=== PATIENT | female | born 1985 | race Hispanic/Latino ===

== ENCOUNTER 2018-04-12 11:00 | Emergency (ER) | payer OTHER ==
[2018-04-12 11:13] VITALS: BMI 28.9
[2018-04-12 11:16] VITALS: TEMP 98
[2018-04-12 11:59] VITALS: O2SAT 98
--- NOTE | 2018-04-12 13:35 | ED PDOC ---
HPI: CCC, URI, Sore Throat Time Seen by Provider: 04/12/18 12:07 Chief Complaint (Nursing): ENT Problem Chief Complaint (Provider): Ear Pain History Per: Patient History/Exam Limitations: no limitations Have you had recent travel within the past 21 days to any of the following countries: [place], [place], [place] or [place]?: No Onset/Duration Of Symptoms: Days (x2) Current Symptoms Are (Timing): Still Present Location Of Pain: Ear(s) Associated Symptoms: denies: Fever, Sore Throat, Cough Ear Symptoms: Left: Ear Pain, Ear Drainage Additional Complaint(s): 32 y/o female presents to the ED with left ear pain since 930am yesterday. Patient states symptoms began yesterday when she noticed drainage and pus coming from the left ear. She reports using q-tips associated with pain. Patient took Motrin for the pain at 9:30 AM today with no relief. Denies any fever, headache, dizziness, recent swimming, cough, or throat pain. LMP is now. PMD: none provided Past Medical History Reviewed: Historical Data, Nursing Documentation, Vital Signs Vital Signs: Last Vital Signs Temp 98 F 04/12/18 11:14 Pulse 67 04/12/18 14:45 Resp 18 04/12/18 14:45 BP 106/77 04/12/18 14:45 Pulse Ox 98 04/13/18 20:21 - Medical History PMH: No Chronic Diseases - Surgical History Surgical History: No Surg Hx - Family History Family History: States: No Known Family Hx - Social History Current smoker - smoking cessation education provided: No Ex-Smoker (has not smoked in the last 12 months): No Alcohol: None Drugs: Denies - Home Medications Home Medications: Ambulatory Orders Medication Instructions Recorded Nitrofurantoin Macrocrystals 100 mg PO BID #14 cap 11/13/15 [Macrobid] Vitamins [ 1 1 tab PO DAILY #30 tab 11/13/15 Vitamin] Famotidine [Pepcid] 1 tab PO BID PRN #10 tab 12/11/16 Ondansetron ODT [Zofran ODT] 4 mg PO Q8 PRN #8 odt 12/11/16 Azithromycin [Z-Shayan] 250 mg PO DAILY #6 tab 04/12/18 Ciprofloxacin/Dexamethasone 4 drop BID #1 bottle 04/12/18 [Ciprodex 0.3%-0.1% 7.5 Ml] Naproxen 500 mg PO BID PRN #20 tablet 04/12/18 - Allergies Allergies/Adverse Reactions: Allergies Allergy/AdvReac Type Severity Reaction Status Date / Time Penicillins Allergy SHORTNESS Verified 04/12/18 12:29 OF BREATH Review of Systems ROS Statement: Except As Marked, All Systems Reviewed And Found Negative Constitutional: Negative for: Fever, Other (recent swimming) ENT: Positive for: Ear Pain (left), Ear Discharge (left ear canal). Negative for: Throat Pain Respiratory: Negative for: Cough Neurological: Negative for: Headache, Dizziness Physical Exam - Reviewed Nursing Documentation Reviewed: Yes Vital Signs Reviewed: Yes - Physical Exam Appears: Positive for: Well (resting comfortably), Non-toxic, No Acute Distress Head Exam: Positive for: NORMOCEPHALIC Skin: Positive for: Normal Color, Warm, Dry Eye Exam: Positive for: EOMI, PERRL ENT: Positive for: Pharynx Is (clear, uvula is midline), TM Is/Are (left is bulging and erythematous, right TM unremarkable), Other (left ear canal is erythematous with exudate, pain with helix movement of left ear; Right ear canal unremarkable). Negative for: Nasal Congestion, Pharyngeal Erythema, Tonsillar Exudate Neck: Positive for: Painless ROM, Supple Cardiovascular/Chest: Positive for: Regular Rate, Rhythm. Negative for: Murmur Respiratory: Positive for: Normal Breath Sounds. Negative for: Decreased Breath Sounds, Accessory Muscle Use, Respiratory Distress Gastrointestinal/Abdominal: Positive for: Soft. Negative for: Tenderness, Distended, Guarding Neurologic/Psych: Positive for: Alert, Oriented (x3), Gait (steady in ED). Negative for: Aphasia, Facial Droop - ECG O2 Sat by Pulse Oximetry: 98 (RA) Pulse Ox Interpretation: Normal Medical Decision Making Medical Decision Making: Time: 11:14 Impression: Otalgia of left ear, otitis media and externa of left ear Initial Plan: * Tylenol 650 mg PO * Zithromax 500 mg PO * Accucheck 1330 Accucheck: 110 On re-evaluation, patient reports improvement of symptoms. On exam, patient remains AAOx3, in no acute distress. Lungs clear to auscultation, cardiac RRR, repeat neuro exam shows no focal findings. Vitals stable, stable for discharge. Lab/Diagnostic results d/w the patient in great detail. Diagnosis of otalgia, otitis media and externa of left ear d/w the patient. Based on history, exam and diagnostic results, plan will be for outpatient follow up. Patient instructed to follow-up with pmd / referral provided / the clinic in 1- 2 days without fail. Advised to take medication as prescribed. Return to the emergency room at any time for any new or worsening symptoms. Patient states she fully agrees with and understands discharge instructions. States that she agrees with the plan and disposition. Verbalized and repeated discharge instructions and plan. I have given the patient opportunity to ask any additional questions. Scribe Attestation: Documented by Jeannette Cage acting as a scribe for Sofi Herrera PA-C. MD Scribe Attestation: All medical record entries made by the Scribe were at my direction and personally dictated by me. I have reviewed the chart and agree that the record accurately reflects my personal performance of the history, physical exam, medical decision making, and the department course for this patient. I have also personally directed, reviewed, and agree with the discharge instructions and disposition. Disposition - Clinical Impression Clinical Impression: Left ear pain, Otitis media, Otitis externa - Patient ED Disposition Is Patient to be Admitted: No Counseled Patient/Family Regarding: Studies Performed, Diagnosis, Need For Followup, Rx Given - Disposition Referrals: [facility] [place] [Outside] Disposition: Routine/Home Disposition Time: 13:33 Condition: STABLE Additional Instructions: Maria Eugenia un seguimiento con la clnica en 1-2 hemphill para karolina evaluacin adicional. Regrese a la alok de emergencias con cualquier sntoma nuevo o que empeore. [place] la medicacin segn lo prescrito. Prescriptions: Azithromycin [Z-Shayan] 250 mg PO DAILY #6 tab Ciprofloxacin/Dexamethasone [Ciprodex 0.3%-0.1% 7.5 Ml] 4 drop BID #1 bottle Naproxen 500 mg PO BID PRN #20 tablet PRN Reason: Pain, Moderate (4-7) Instructions: Ear Infections (Otitis Media), Outer Ear Infection Forms: [employer] (Mongolian) Print Language: EQUATORIAL GUINEAN - POA Present On Arrival: None Results - Lab Results Lab Results: 04/12/18 14:25 POC Glucose (mg/dL) 110
[2018-04-12 15:15] VITALS: BP 106/77; PULSE 67; RESP 18
== END 2018-04-12 14:55 | disposition home or self-care (01) ==
LOC: H.ER 11:00
DX: H66.92 Otitis media, unspecified, left ear (principal); H60.92 Unspecified otitis externa, left ear; Z88.0 Allergy status to penicillin